=== PATIENT | female | born 1980 | race Caucasian/White ===

== ENCOUNTER 2016-08-10 18:11 | Emergency (ER) | payer OTHER ==
[~2016-08-10] VITALS: Ht 170.2 cm; Wt 146.3 kg
[~2016-08-10 18:11] MED LIST: HYDR-5688 PO; NORT10CA2 PO; OMEP40CA PO
[2016-08-10 18:20] VITALS: Ht 170.2 cm; Wt 146.3 kg
[2016-08-10] MEDS ORDERED: SODIUM CHLORIDE 0.9% 1000ML 1,000 ML IV STA (18:31)
[2016-08-10] MEDS ORDERED: PROCHLORPERAZINE 5 MG/ML 2 ML VIAL IV STA (18:34)
[2016-08-10] MEDS ORDERED: DiphenhydrAMINE HCL 50 MG/ML VIAL IV STA (18:34)
[2016-08-10] MEDS ORDERED: KETOROLAC TROMETHAMINE 30 MG/ML VIAL IV STA (18:34)
--- NOTE | 2016-08-10 18:46 | EMERGENCY ROOM VISIT NOTE ---
History Report prepared by She: Luis Mcnair Under the Supervision of: Dr. Lisandra Lieberman M.D. First contact with patient: 18:23 Chief Complaint: HEADACHE Stated Complaint: HEADACHE History of Present Illness The patient is a 36 year old female who presents to the Emergency Room with complaints of a constant headache beginning one day prior to arrival. She currently rates her discomfort as a 10/10 in severity. The patient states she had a lower spinal injection performed yesterday, and she developed a headache two hours after the injection that continues to shoot from her neck to the top of her head. She notes her symptoms improve with lying down. The patient associates light sensitivity, nausea, and vomiting with today's symptoms. She states she has a history of migraines, but this episode does not feel like her typical migraine. The patient notes she called her doctor's office, who gave the injection, and they noted it was too late to be seen but to rest, drink fluids, and call in the morning. She states she then called her PCP, who referred the patient to the ED for a possible spinal headache. The patient denies a fever. 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 Review of Systems See HPI for pertinent positives & negatives. A total of 10 systems reviewed and were otherwise negative. Past Medical & Surgical Medical Problems: (1) Bulging disc (2) Cleveland's disease (3) Migraines (4) Spinal stenosis Surgical Problems: (1) S/P appendectomy (2) S/P hysterectomy (3) S/P tonsillectomy (4) S/P tubal ligation Family History Cancer Diabetes mellitus Heart disease Hypertension Social History Smoking Status: Never Smoker Marital Status: Occupation Status: employed Current/Historical Medications Scheduled Eletriptan (Relpax), 20 MG PO DIRECTED Levothyroxine Sodium (Synthroid), 175 MCG PO DAILY Sumatriptan Succinate (Imitrex), 1 TABS PO PRN Allergies Coded Allergies: Sulfa Drugs (Verified Allergy, Unknown, BACTRIM DS, 06/06/09) Oxycodone (Unverified Adverse Reaction, Unknown, NAUSEA AND VOMITING, DIZZINESS, 10/14/11) Physical Exam Vital Signs Date Time Temp Pulse Resp B/P Pulse Ox O2 Delivery O2 Flow Rate FiO2 08/10/16 21:00 36.6 71 20 110/64 96 08/10/16 20:01 71 20 110/64 96 Room Air 08/10/16 19:55 76 20 124/60 96 Room Air 83 109/68 74 110/64 08/10/16 19:31 75 18 120/62 96 Room Air 08/10/16 18:20 36.6 71 18 147/80 98 Room Air Physical Exam Vital signs reviewed. General: Well-appearing female, in no significant distress. HEENT: No scleral icterus, PERRLA, neck supple. Atraumatic. No meningeal signs. Cardiovascular: Regular rate and rhythm, no extra sounds. Pulmonary: Clear to auscultation bilaterally, normal work of breathing. Abdomen: Obese, soft, nontender, nondistended, positive bowel sounds. Musculoskeletal: Atraumatic, no peripheral edema. Neurologic: Patient awake alert and oriented x 3, full strength in all 4 extremities. Cranial nerves 2 through 12 grossly intact. Skin: Warm, dry, no rash Medical Decision & Procedures Laboratory Results 08/10/16 18:50 Red Blood Count 4.87, Mean Corpuscular Volume 83.6, Mean Corpuscular Hemoglobin 29.0, Mean Corpuscular Hemoglobin Concent 34.6, Mean Platelet Volume 11.1, Neutrophils (%) (Auto) 65.8, Lymphocytes (%) (Auto) 26.1, Monocytes (%) (Auto) 5.9, Eosinophils (%) (Auto) 1.7, Basophils (%) (Auto) 0.2, Neutrophils # (Auto) 8.22, Lymphocytes # (Auto) 3.26, Monocytes # (Auto) 0.74, Eosinophils # (Auto) 0.21, Basophils # (Auto) 0.02 08/10/16 18:50 Test 08/10/16 18:50 08/10/16 18:58 08/10/16 20:00 White Blood Count 12.49 K/uL (4.8-10.8) Red Blood Count 4.87 M/uL (4.2-5.4) Hemoglobin 14.1 g/dL (12.0-16.0) Hematocrit 40.7 % (37-47) Mean Corpuscular Volume 83.6 fL (80-100) Mean Corpuscular Hemoglobin 29.0 pg (25-34) Mean Corpuscular Hemoglobin Concent 34.6 g/dl (32-36) Platelet Count 244 K/uL (130-400) Mean Platelet Volume 11.1 fL (7.4-10.4) Neutrophils (%) (Auto) 65.8 % Lymphocytes (%) (Auto) 26.1 % Monocytes (%) (Auto) 5.9 % Eosinophils (%) (Auto) 1.7 % Basophils (%) (Auto) 0.2 % Neutrophils # (Auto) 8.22 K/uL (1.4-6.5) Lymphocytes # (Auto) 3.26 K/uL (1.2-3.4) Monocytes # (Auto) 0.74 K/uL (0.11-0.59) Eosinophils # (Auto) 0.21 K/uL (0-0.5) Basophils # (Auto) 0.02 K/uL (0-0.2) RDW Standard Deviation 38.0 fL (36.4-46.3) RDW Coefficient of Variation 12.5 % (11.5-14.5) Immature Granulocyte % (Auto) 0.3 % Immature Granulocyte # (Auto) 0.04 K/uL (0.00-0.02) Anion Gap 9.0 mmol/L (3-11) Est Creatinine Clear Calc Drug Dose 154.3 ml/min Estimated GFR () 117.0 Estimated GFR (Non- 100.9 BUN/Creatinine Ratio 21.6 (10-20) Calcium Level 8.7 mg/dl (8.5-10.1) Total Bilirubin 0.2 mg/dl (0.2-1) Direct Bilirubin < 0.1 mg/dl (0-0.2) Aspartate Amino Transf (AST/SGOT) 17 U/L (15-37) Alanine Aminotransferase (ALT/SGPT) 42 U/L (12-78) Alkaline Phosphatase 98 U/L (45-117) Total Protein 7.6 gm/dl (6.4-8.2) Albumin 3.9 gm/dl (3.4-5.0) Bedside Troponin I 0.000 ng/ml (0-0.045) Urine Color YELLOW Urine Appearance CLEAR (CLEAR) Urine pH 5.5 (4.5-7.5) Urine Specific Garfield 1.033 (1.000-1.030) Urine Protein NEG (NEG) Urine Glucose (UA) NEG (NEG) Urine Ketones NEG (NEG) Urine Occult Blood NEG (NEG) Urine Nitrite NEG (NEG) Urine Bilirubin NEG (NEG) Urine Urobilinogen NEG (NEG) Urine Leukocyte Esterase NEG (NEG) Laboratory results per my review. Medications Administered Medications (Trade) Dose Ordered Sig/Edwige Route Start Time Stop Time Status Last Admin Dose Admin Sodium Chloride (Nss 1000ml) 1,000 ml @ 999 mls/hr Q1H1M STAT IV 08/10/16 18:31 08/10/16 19:31 DC 08/10/16 18:57 999 MLS/HR Ketorolac Tromethamine (Toradol Inj) 30 mg NOW STAT IV 08/10/16 18:34 08/10/16 18:35 DC 08/10/16 18:55 30 MG Prochlorperazine Edisylate (Compazine Inj) 10 mg NOW STAT IV 08/10/16 18:34 08/10/16 18:35 DC 08/10/16 18:55 10 MG Diphenhydramine HCl (Benadryl Inj) 25 mg NOW STAT IV 08/10/16 18:34 08/10/16 18:35 DC 08/10/16 18:55 25 MG Acetaminophen/ Hydrocodone Bitart (Clarence 5/325mg Home Pack) 1 homepack UD ONCE PO 08/10/16 20:45 08/10/16 20:46 DC 08/10/16 20:59 1 HOMEPACK ED Course 1828: Past medical records reviewed. The patient was evaluated in room A9B. A complete history and physical examination was performed. 1830: Ordered Sodium Chloride 1,000 ml @ 999 mls/hr IV. 1833: Ordered Benadryl Inj 25 mg IV, Compazine Inj 10 mg IV, Toradol Inj 30 mg IV. 2044: Ordered Acetaminophen/Hydrocodone Bitart 1 homepack PO. 2046: Upon reevaluation, the patient appeared to have improvement of her symptoms. I discussed findings with her. She verbalized agreement of the treatment plan. The patient was discharged home. Medical Decision Differential diagnosis: Intracranial hemorrhage, intracranial mass, migraine headache, tension headache , sinusitis, meningitis, spinal headache. This patient was evaluated and appeared to be in no significant distress. Physical examination is fairly unrevealing. The patient was hydrated with normal saline solution, given IV Compazine, IV Benadryl and IV Toradol. Patient had significant resolution of her symptoms. Laboratory work is unrevealing. This is likely a migraine headache by history. She did have an epidural injection yesterday and this may represent a low flow headache. The patient was encouraged to drink plenty of clear fluids. She will use Clarence as needed for severe pain. She will not drive while taking this medication. The patient was discharged in care of her family members and will follow-up with her physician this week. She will return to the ER for worsening of symptoms or any medical concerns. Impression Primary Impression: Status post epidural steroid injection Additional Impression: Migraine headache Scribe Attestation The scribe's documentation has been prepared under my direction and personally reviewed by me in its entirety. I confirm that the note above accurately reflects all work, treatment, procedures, and medical decision making performed by me. Departure Information Dispostion Home / Self-Care Referrals Amy Conner M.D. (PCP) Forms HOME CARE DOCUMENTATION FORM, IMPORTANT VISIT INFORMATION Patient Instructions [facility] Additional Instructions Diagnosis: Migraine headache, status post epidural injection Please drink plenty of clear fluids. Clarence one to 2 tabs every 6 hours as needed for severe pain. Do not drive or take Tylenol with this medication. Follow-up with your physician this week for reevaluation. Return to the ER for worsening of symptoms or any medical concerns. Problem Qualifiers Additional Impression: Migraine headache Migraine type: without aura Status migrainosus presence: without status migrainosus Intractability: not intractable Qualified Codes: G43.009 - Migraine without aura, not intractable, without status migrainosus
[2016-08-10] MEDS ORDERED: LEVO175T PO (19:09)
[2016-08-10] MEDS ORDERED: SUMA50TA15 PO (19:10)
[2016-08-10] MEDS ORDERED: ELET20TA PO (19:10)
[2016-08-10 19:15] LABS: BASO % 0.2 %; BASO ABS # 0.02 K/uL (0-0.2); COMPLETE YES; EOS % 1.7 %; HEMATOCRIT 40.7 % (37-47); IG% 0.3 %; LYMPH % 26.1 %; LYMPH ABS # 3.26 K/uL (1.2-3.4); MEAN CELL VOLUME 83.6 fL (80-100); MEAN CORPUSCULAR HGB CONC 34.6 g/dl (32-36); MEAN PLATELET VOLUME 11.1 fL (7.4-10.4); MONO % 5.9 %; NEUT % 65.8 %; PLATELET COUNT 244 K/uL (130-400); RED BLOOD COUNT 4.87 M/uL (4.2-5.4); WHITE BLOOD COUNT 12.49 K/uL (4.8-10.8)
[2016-08-10 19:31] LABS: ALT/SGPT 42 U/L (12-78); BLOOD UREA NITROGEN 16 mg/dl (7-18); BUN/CREATININE RATIO 21.6 (10-20); CALCIUM 8.7 mg/dl (8.5-10.1); CARBON DIOXIDE 25 mmol/L (21-32); CHLORIDE 107 mmol/L (98-107); CREATININE 0.76 mg/dl (0.60-1.20); GLUCOSE 102 mg/dl (70-99); POTASSIUM 3.5 mmol/L (3.5-5.1); SODIUM 141 mmol/L (136-145)
[2016-08-10 19:34] LABS: ALKALINE PHOSPHATASE 98 U/L (45-117); AST/SGOT 17 U/L (15-37)
[2016-08-10 20:25] LABS: URINE APPEARANCE CLEAR (CLEAR); URINE BILIRUBIN NEG (NEG); URINE COLOR YELLOW; URINE NITRITE NEG (NEG); URINE PH 5.5 (4.5-7.5); URINE SPECIFIC GRAVITY 1.033 (1.000-1.030); UROBILINOGEN NEG (NEG); ZZUR CULT IF INDIC CLEAN CATCH NO
[2016-08-10 20:28] LABS: MANUAL MICROSCOPIC REQUIRED? NO; REVIEW REQ? NO
[2016-08-10] MEDS ORDERED: NORCO 5/325MG HOME PACK PO ONE (20:45)
[2016-08-10 21:00] VITALS: BP 110/64; PULSE 71; TEMP 36.6; O2SAT 96
== END 2016-08-10 21:01 | disposition home or self-care (01) ==
LOC: C.EDB 18:12 → C.EDA 21:01
DX: Z98.890 Other specified postprocedural states (principal); G43.909 Migraine, unspecified, not intractable, without status migrainosus; E06.3 Autoimmune thyroiditis; M48.00 Spinal stenosis, site unspecified; Z80.9 Family history of malignant neoplasm, unspecified; Z83.3 Family history of diabetes mellitus; Z82.49 Family history of ischemic heart disease and other diseases of the circulatory system; Z79.899 Other long term (current) drug therapy

== ENCOUNTER 2018-09-30 16:18 | Inpatient (IN) ==
--- OUTSIDE RECORDS SUMMARY | 2018-09-30 16:23 | External Medical Summary | Continuity of Care Document ---
:1980 Author Name Tommie Rios Address Unavailable Unavailable , Care Team Providers Name Role Phone Zayra Engel PA-C Unavailable [email or web address] [place] Julia TEE Unavailable [email or web address] Victoria M.D. 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 Gabriel Victoria Start: 03-Jul-2013 Quantity: 30 Refills: 10 Levothyroxine Sodium 125 MCG Oral Tablet; TAKE 1 TABLE T DAILY DIRECTED. NAY Dumont Start: 06-Sep-2013 Quantity: 30 Refills: 3 Procedures Procedures not documented Immunizations Immunizations not documented Plan of Treatment Planned Observations Planned Goals not documented Results No Known Results Results not documented
[2018-09-30] MEDS ORDERED: SODIUM CHLORIDE 0.9% 1000ML 2,000 ML IV ONE (16:35)
[2018-09-30] MEDS ORDERED: ONDANSETRON INJ 2 MG/ML 2 ML VIAL IV STA (16:35)
[2018-09-30] MEDS ORDERED: MoRPHine SULFATE 10 MG/ML CARP/VIAL IV STA (16:35)
--- NOTE | 2018-09-30 16:47 | Emergency Department Note ---
History of Present Illness General Chief complaint: Fever Stated complaint: Fever, body aches, abdominal pain, headache, vomit Source: patient Mode of arrival: ambulatory Limitations: no limitations History of Present Illness Maximum Pain Intensity: 7 This patient is a 38-year-old female who presents to the emergency department complaining of fever and generalized illness for the past 4 days. The patient states that 4 days ago, she initially developed lower abdominal pain. She states the pain radiates across her lower abdomen and rates the discomfort a 7/10. Since then, she has developed fevers, lightheadedness, chest pressure, body aches and headache. She has had associated nausea and vomiting. She den ies diarrhea. She has been taking Tylenol and ibuprofen and states this is no longer relieving her fevers. She states her temperature has been up to 103 F at home. 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 She denies other medical problems. She denies neck pain/stiffness, cough or sore throat. Home Medications Home Medications Medication Instructions Recorded Confirmed Type duloxetine 30 mg PO DAILY 09/30/18 09/30/18 History duloxetine 60 mg PO DAILY 09/30/18 09/30/18 History Allergies Allergy/AdvReac Type Severity Reaction Status Date / Time Sulfa (Sulfonamide Allergy Unknown BACTRIM DS Verified 09/30/18 16:50 Antibiotics) oxycodone AdvReac Intermediate NAUSEA AND Unverified 09/30/18 21:13 VOMITING, DIZZINESS Past Med/Surg History Medical History Cleveland's disease Migraines (Chronic) Social History Preferred Language: Malagasy Communication Ability: Effective Sausage Maker Required: No Beliefs That Will Affect Care: None Current Living Situation: Spouse Other Information That Helps Us Care for You: No Feels Safe at Home: Yes Safety Concerns: Feels Safe At This Time Smoking Status: Never smoker Hx Alcohol Use: Yes Hx Substance Use: No Review of Systems A total of 10 systems reviewed and were otherwise negative Physical Exam Vital Signs Vital Signs - 24 hr 09/30/18 18:00 09/30/18 18:30 09/30/18 18:31 Pulse Rate 101 H 103 H 103 H Pulse Rate from SpO2 Sensor 103 H 104 H 103 H Respiratory Rate 23 24 Blood Pressure 128/75 117/61 Blood Pressure Mean 92 79 Pulse Oximetry 93 92 94 09/30/18 19:00 09/30/18 19:20 09/30/18 19:21 Pulse Rate 107 H 101 H 103 H Pulse Rate from SpO2 Sensor 102 H 104 H Respiratory Rate 21 23 Blood Pressure 125/69 134/55 L Blood Pressure Mean 87 81 Pulse Oximetry 97 97 09/30/18 19:30 09/30/18 19:31 Pulse Rate 101 H 104 H Pulse Rate from SpO2 Sensor 98 H 104 H Respiratory Rate 27 H 23 Blood Pressure 111/58 L Blood Pressure Mean 75 Pulse Oximetry 95 VITALS: Vitals are noted on the nurse's note and reviewed by myself. Vital signs stable. GENERAL: This is a 38-year-old female, in moderate distress, shaking, well- developed well-nourished. SKIN: The skin was without rashes. EARS: External auditory canals clear, tympanic membranes pearly mo without erythema or effusion bilaterally. EYES: Pupils equal round and reactive to light and accommodation. NOSE: Patent, turbinates without inflammation or discharge. MOUTH: Mucous membranes moist. Tonsils are not enlarged. Pharynx without eryt komal or exudate. NECK: Supple without nuchal rigidity. No lymphadenopathy. No tenderness of the posterior neck. No meningismus. HEART: Regular rate and rhythm without murmurs gallops or rubs. LUNGS: Clear to auscultation bilaterally without wheezes, rales or rhonchi. ABDOMEN: Positive bowel sounds x 4. Moderate tenderness to palpation across the lower abdomen. No guarding or rebound tenderness. NEURO: Patient was alert and oriented to person place and time. Course Reevaluation(s) Reevaluation #1: Patient was reevaluated after CT scanning and has developed a few hives. She was given a dose of Benadryl. She also requested an additional dose of pain medication and was given this. Reevaluation #2: Patient is feeling better at this time. Findings were discussed with the patient. She is agreeable to admission. Consultations Consultation #1: Dr. Eugene - [facility] hospitalist Administered Medications Acetaminophen (Tylenol) 650 mg PO Q4H PRN PRN Reason: pain/fever Stop: 10/30/18 22:15 Last Admin: 10/01/18 13:50 Dose: 650 mg Documented by: [id number] Admin: 09/30/18 23:55 Dose: 650 mg Documented by: [id number] Duloxetine HCl (Cymbalta) 30 mg PO DAILY [facility] Stop: 10/31/18 08:59 Last Admin: 10/01/18 08:34 Dose: 30 mg Documented by: [id number] Duloxetine HCl (Cymbalta) 60 mg PO DAILY [facility] Stop: 10/31/18 08:59 Last Admin: 10/01/18 08:34 Dose: 60 mg Documented by: [id number] Enoxaparin Sodium (Lovenox) 40 mg SQ Q24H [facility] Stop: 10/31/18 08:59 Last Admin: 10/01/18 08:35 Dose: 40 mg Documented by: [id number] Cefepime HCl 1,000 mg/ Syringe 11.3 mls @ 5.5 mls/min IV TID [facility]; Protocol Stop: 10/11/18 08:59 Last Admin: 10/01/18 13:50 Dose: 5.5 mls/min Documented by: [id number] Admin: 10/01/18 08:35 Dose: 5.5 mls/min Documented by: [id number] Morphine Sulfate (Morphine Sulfate) 2 mg IV Q2H PRN PRN Reason: Pain Stop: 10/14/18 22:15 Last Admin: 09/30/18 23:34 Dose: 2 mg Documented by: [id number] Discontinued Medications Diphenhydramine HCl (Benadryl) 50 mg IV NOW STA Stop: 09/30/18 19:22 Last Admin: 09/30/18 19:26 Dose: 50 mg Documented by: [id number] Diphenhydramine HCl (Benadryl) Confirm Administered Dose 50 mg .ROUTE .STK-MED ONE Stop: 09/30/18 19:23 Last Admin: 09/30/18 19:26 Dose: Not Given Documented by: [id number] Hydromorphone HCl (Dilaudid) 1 mg IV NOW STA Stop: 09/30/18 19:32 Last Admin: 09/30/18 19:34 Dose: 1 mg Documented by: [id number] Sodium Chloride (Nss 1000ml) 2,000 mls @ 999 mls/hr IV .Q2H1M ONE Stop: 09/30/18 18:35 Last Infusion: 09/30/18 20:11 Dose: 0 mls/hr Documented by: [id number] Admin: 09/30/18 18:10 Dose: 999 mls/hr Documented by: [id number] Ceftriaxone Sodium (Rocephin) 1,000 mg in 50 mls @ 100 mls/hr IV NOW STA Stop: 09/30/18 20:06 Last Infusion: 09/30/18 20:23 Dose: 0 mls/hr Documented by: [id number] Admin: 09/30/18 19:52 Dose: 100 mls/hr Documented by: [id number] Sodium Chloride (Nss 1000ml) 1,000 mls @ 125 mls/hr IV .Q8H JUWAN Stop: 10/30/18 22:15 Last Admin: 10/01/18 13:51 Dose: 125 mls/hr Documented by: [id number] Infusion: 10/01/18 13:51 Dose: 125 mls/hr Documented by: [id number] Admin: 10/01/18 06:41 Dose: 125 mls/hr Documented by: [id number] Infusion: 10/01/18 06:41 Dose: 125 mls/hr Documented by: [id number] Admin: 09/30/18 23:35 Dose: 125 mls/hr Documented by: [id number] Ioversol (Optiray 320 100ml) 90 ml IV ONCE PRN PRN Reason: Interaction Checking Stop: 10/04/18 19:15 Last Admin: 09/30/18 19:16 Dose: 90 ml Documented by: [id number] Morphine Sulfate (Morphine Sulfate) 6 mg IV NOW STA Stop: 09/30/18 16:36 Last Admin: 09/30/18 18:09 Dose: 6 mg Documented by: [id number] Ondansetron HCl (Zofran) 4 mg IV NOW STA Stop: 09/30/18 16:36 Last Admin: 09/30/18 18:10 Dose: 4 mg Documented by: [id number] Medical Decision Making Differential Diagnosis Differential diagnosis includes sepsis, UTI, pyelonephritis, infected kidney stone, appendicitis, diverticulitis, colitis, intra-abdominal abscess, meningitis, pneumonia, viral illness, influenza, among others. Home Medications Current Medication List: was personally reviewed by me Laboratory Data Attestation: I reviewed the patient's lab results. Result diagrams: 10/01/18 06:29 10/01/18 06:29 Lab Results 09/30/18 09/30/18 09/30/18 Range/Units 16:48 16:48 16:48 WBC (4.8-10.8) K/uL RBC (4.2-5.4) M/uL Hgb (12.0-16.0) g/dL POC Hgb (12.0-16.0) g/dl Hct (37-47) % POC Hct (37-47) % MCV (80-100) fL MCH (25-34) pg MCHC (32-36) g/dL RDW Std Deviation (36.4-46.3) fL RDW Coeff of Kam (11.5-14.5) % Plt Count (130-400) K/uL MPV (7.4-10.4) fL Immature Gran % (Auto) % Neut % (Auto) % Lymph % (Auto) % Kinney % (Auto) % Eos % (Auto) % Baso % (Auto) % Immature Gran # (Auto) (0.00-0.02) K/uL Neut # (Auto) (1.4-6.5) K/uL Lymph # (Auto) (1.2-3.4) K/uL Kinney # (Auto) (0.11-0.59) K/uL Eos # (Auto) (0-0.5) K/uL Baso # (Auto) (0-0.2) K/uL POC Sodium (135-144) mEq/L Sodium (136-145) mmol/L POC Potassium (3.3-5.0) mEq/L Potassium (3.5-5.1) mmol/L POC Chloride (101-112) mEq/L Chloride (98-107) mmol/L Carbon Dioxide (21-32) mmol/L POC Total CO2 (24-31) mEq/l Anion Gap (3-11) POC Anion Gap (16-25) mmol/L POC BUN (7-18) mg/dl BUN (7-18) mg/dl Creatinine (0.6-1.2) mg/dl POC Creatinine (0.6-1.3) mg/dl Est Cr Clr Drug Dosing ml/min Est GFR ( Amer) Est GFR (Non-Af Amer) BUN/Creatinine Ratio (10-20) Glucose (70-99) mg/dl POC Glucose (other) (70-99) mg/dl Lactate (0.4-2.0) mmol/L Calcium (8.5-10.1) mg/dl POC Ioniz Calcium Michelle (1.12-1.32) mmol/l Total Bilirubin (0.2-1) mg/dl AST (15-37) U/L ALT (12-78) U/L Alkaline Phosphatase (45-117) U/L Troponin I (0-0.045) ng/ml Total Protein (6.4-8.2) gm/dl Albumin (3.4-5.0) gm/dl Globulin (2.5-4.0) gm/dl Albumin/Globulin Ratio (0.9-2) TSH (0.300-4.500) uIu/ml Urine Color Dark Yellow Urine Appearance Clear (Clear) Urine pH 6.5 (4.5-7.5) Ur Specific [place] 1.023 (1.000-1.030) Urine Protein 1+ H (Negative) Urine Glucose (UA) Negative (Negative) Urine Ketones Negative (Negative) Urine Blood 2+ H (Negative) Urine Nitrite Negative (Negative) Urine Bilirubin 1+ H (Negative) Urine Urobilinogen Negative (Negative) Ur Leukocyte Esterase Trace H (Negative) Urine WBC (Auto) 10-30 H (0-5) /hpf Urine RBC (Auto) 10-30 H (0-4) /hpf U Hyaline Cast (Auto) 1-5 (0-5) /lpf U Epithel Cells (Auto) >30 H (0-5) /lpf Urine Bacteria (Auto) Negative (Negative) POC Ur Test NEG (NEG) Acetaminophen (10-30) ug/ml Influenza Type A Ag Neg for Influ A (Neg) Influenza Type B Ag Neg for Influ B (Neg) 09/30/18 09/30/18 09/30/18 Range/Units 18:05 18:05 18:05 WBC 12.76 H (4.8-10.8) K/uL RBC 4.59 (4.2-5.4) M/uL Hgb 13.7 (12.0-16.0) g/dL POC Hgb (12.0-16.0) g/dl Hct 40.2 (37-47) % POC Hct (37-47) % MCV 87.6 (80-100) fL MCH 29.8 (25-34) pg MCHC 34.1 (32-36) g/dL RDW Std Deviation 41.2 (36.4-46.3) fL RDW Coeff of Kam 12.8 (11.5-14.5) % Plt Count 185 (130-400) K/uL MPV 9.9 (7.4-10.4) fL Immature Gran % (Auto) 0.2 % Neut % (Auto) 77.2 % Lymph % (Auto) 9.2 % Kinney % (Auto) 12.9 % Eos % (Auto) 0.3 % Baso % (Auto) 0.2 % Immature Gran # (Auto) 0.03 H (0.00-0.02) K/uL Neut # (Auto) 9.86 H (1.4-6.5) K/uL Lymph # (Auto) 1.17 L (1.2-3.4) K/uL Kinney # (Auto) 1.64 H (0.11-0.59) K/uL Eos # (Auto) 0.04 (0-0.5) K/uL Baso # (Auto) 0.02 (0-0.2) K/uL POC Sodium (135-144) mEq/L Sodium 141 (136-145) mmol/L POC Potassium (3.3-5.0) mEq/L Potassium 3.5 (3.5-5.1) mmol/L POC Chloride (101-112) mEq/L Chloride 110 H (98-107) mmol/L Carbon Dioxide 24 (21-32) mmol/L POC Total CO2 (24-31) mEq/l Anion Gap 7.0 (3-11) POC Anion Gap (16-25) mmol/L POC BUN (7-18) mg/dl BUN 9 (7-18) mg/dl Creatinine 0.72 (0.6-1.2) mg/dl POC Creatinine (0.6-1.3) mg/dl Est Cr Clr Drug Dosing 154.9 ml/min Est GFR ( Amer) 123.1 Est GFR (Non-Af Amer) 106.2 BUN/Creatinine Ratio 12.1 (10-20) Glucose 112 H (70-99) mg/dl POC Glucose (other) (70-99) mg/dl Lactate 0.9 (0.4-2.0) mmol/L Calcium 8.9 (8.5-10.1) mg/dl POC Ioniz Calcium Michelle (1.12-1.32) mmol/l Total Bilirubin 0.8 (0.2-1) mg/dl AST 53 H (15-37) U/L ALT 94 H (12-78) U/L Alkaline Phosphatase 136 H (45-117) U/L Troponin I < 0.015 (0-0.045) ng/ml Total Protein 7.3 (6.4-8.2) gm/dl Albumin 3.2 L (3.4-5.0) gm/dl Globulin 4.1 H (2.5-4.0) gm/dl Albumin/Globulin Ratio 0.8 L (0.9-2) TSH 1.230 (0.300-4.500) uIu/ml Urine Color Urine Appearance (Clear) Urine pH (4.5-7.5) Ur Specific [place] (1.000-1.030) Urine Protein (Negative) Urine Glucose (UA) (Negative) Urine Ketones (Negative) Urine Blood (Negative) Urine Nitrite (Negative) Urine Bilirubin (Negative) Urine Urobilinogen (Negative) Ur Leukocyte Esterase (Negative) Urine WBC (Auto) (0-5) /hpf Urine RBC (Auto) (0-4) /hpf U Hyaline Cast (Auto) (0-5) /lpf U Epithel Cells (Auto) (0-5) /lpf Urine Bacteria (Auto) (Negative) POC Ur Test (NEG) Acetaminophen (10-30) ug/ml Influenza Type A Ag (Neg) Influenza Type B Ag (Neg) 09/30/18 09/30/18 Range/Units 18:16 20:36 WBC (4.8-10.8) K/uL RBC (4.2-5.4) M/uL Hgb (12.0-16.0) g/dL POC Hgb 13.6 (12.0-16.0) g/dl Hct (37-47) % POC Hct 40 (37-47) % MCV (80-100) fL MCH (25-34) pg MCHC (32-36) g/dL RDW Std Deviation (36.4-46.3) fL RDW Coeff of Kam (11.5-14.5) % Plt Count (130-400) K/uL MPV (7.4-10.4) fL Immature Gran % (Auto) % Neut % (Auto) % Lymph % (Auto) % Kinney % (Auto) % Eos % (Auto) % Baso % (Auto) % Immature Gran # (Auto) (0.00-0.02) K/uL Neut # (Auto) (1.4-6.5) K/uL Lymph # (Auto) (1.2-3.4) K/uL Kinney # (Auto) (0.11-0.59) K/uL Eos # (Auto) (0-0.5) K/uL Baso # (Auto) (0-0.2) K/uL POC Sodium 141 (135-144) mEq/L Sodium (136-145) mmol/L POC Potassium 3.4 (3.3-5.0) mEq/L Potassium (3.5-5.1) mmol/L POC Chloride 106 (101-112) mEq/L Chloride (98-107) mmol/L Carbon Dioxide (21-32) mmol/L POC Total CO2 21 L (24-31) mEq/l Anion Gap (3-11) POC Anion Gap 18.0 (16-25) mmol/L POC BUN 7 (7-18) mg/dl BUN (7-18) mg/dl Creatinine (0.6-1.2) mg/dl POC Creatinine 0.6 (0.6-1.3) mg/dl Est Cr Clr Drug Dosing ml/min Est GFR ( Amer) Est GFR (Non-Af Amer) BUN/Creatinine Ratio (10-20) Glucose (70-99) mg/dl POC Glucose (other) 120 H (70-99) mg/dl Lactate (0.4-2.0) mmol/L Calcium (8.5-10.1) mg/dl POC Ioniz Calcium Michelle 1.14 (1.12-1.32) mmol/l Total Bilirubin (0.2-1) mg/dl AST (15-37) U/L ALT (12-78) U/L Alkaline Phosphatase (45-117) U/L Troponin I (0-0.045) ng/ml Total Protein (6.4-8.2) gm/dl Albumin (3.4-5.0) gm/dl Globulin (2.5-4.0) gm/dl Albumin/Globulin Ratio (0.9-2) TSH (0.300-4.500) uIu/ml Urine Color Urine Appearance (Clear) Urine pH (4.5-7.5) Ur Specific [place] (1.000-1.030) Urine Protein (Negative) Urine Glucose (UA) (Negative) Urine Ketones (Negative) Urine Blood (Negative) Urine Nitrite (Negative) Urine Bilirubin (Negative) Urine Urobilinogen (Negative) Ur Leukocyte Esterase (Negative) Urine WBC (Auto) (0-5) /hpf Urine RBC (Auto) (0-4) /hpf U Hyaline Cast (Auto) (0-5) /lpf U Epithel Cells (Auto) (0-5) /lpf Urine Bacteria (Auto) (Negative) POC Ur Test (NEG) Acetaminophen 2 L (10-30) ug/ml Influenza Type A Ag (Neg) Influenza Type B Ag (Neg) Imaging Data Attestation: I personally reviewed and interpreted this imaging study as foll ows: Radiologist's Impression: XR chest 1V portable FINDINGS: The heart is the upper limits of normal in size. There is a suboptimal inspiration. There are basilar opacities left greater than right, atelectatic versus infectious/inflammatory.[ There is no failure. There are no large pleural effusions. IMPRESSION: 1. Low lung volumes with basilar opacities left greater than right, atelectatic versus infectious/inflammatory CT abd pelvis IV con only FINDINGS: Lower chest: There are bibasilar airspace opacities, statistically atelectatic although an inflammatory process could appear similar Liver: The contrast-enhanced liver is normal in size, contour, and attenuation. There is no intrahepatic biliary ductal dilatation. The hepatic veins and portal veins are patent. Gallbladder: The gallbladder is mildly distended. No calculi are visualized. There is no gallbladder wall thickening. Spleen: Spleen is mildly enlarged measuring 13.3 cm. Pancreas: There is fatty atrophy the pancreas. No pancreatic masses are visualized. Adrenal glands: Unremarkable. Kidneys: There is a duplex left renal collecting system. There is an area of focal diminished attenuation involving both the upper pole moiety and the lower pole moiety. There is infiltration of the perinephric fat. The findings are suggestive of polynephritis with focal lobar nephronia. Bowel: There are no transition zones indicate bowel obstruction. There is no evidence of acute diverticulitis. There are no findings to indicate acute appendicitis. Peritoneum: There is no intraperitoneal free air or abdominal ascites. Vasculature: The abdominal aorta is normal in course and caliber. Adenopathy: There are minimally prominent para-aortic lymph nodes nodes, likely reactive. Pelvic viscera: The uterus appears surgically absent Skeletal structures: No destructive osseous lesions are seen. IMPRESSION: Normal Study 1. CT findings indicative of left renal pyelonephritis with areas of lobar nephronia. 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 2. No evidence of bowel obstruction. No evidence of free air 3. Mild splenomegaly 4. Bilateral lower lobe pulmonary opacities, statistically atelectatic Biliary ultrasound FINDINGS: The pancreas was largely obscured. No pancreatic masses are visualized. There is no pancreatic ductal dilatation. There is no right-sided hydronephrosis. Multiple gallstones are visualized. There is no gallbladder wall thickening. There is no pericholecystic fluid. There is no ductal dilatation. The common bile duct measures 5 mm. IMPRESSION: 1. Cholelithiasis. No evidence of ductal dilatation. Blood Pressure Blood Pressure Findings: Normal blood pressure Blood Pressure Disposition: did not require urgent referral MDM Narrative The patient is a 38-year-old female who presents today complaining of fevers and abdominal pain. Labs revealed a leukocytosis of 12.76. Kidney function within normal limits. LFTs were found to be elevated with AST of 53, ALT of 94, and alkaline phosphatase of 136. CT of the abdomen/pelvis was performed and shows evidence of pyelonephritis with lobar nephronia. Urinalysis suggestive of possible infection and given the CT findings patient will be treated for pyelonephritis. She was given a dose of 1 g Rocephin. She was hydrated with 2 L of saline. She was medicated for pain and nausea. Given patient's mildly elevated LFTs, ultrasound of the gallbladder was obtained and did not show any acute findings. The patient has been taking multiple doses of Tylenol and I suspect this is the reason for the LFT elevation. Patient was agreeable with admission. The case was discussed with the [facility] hospitalist service. The patient's case was discussed with Dr. Huynh, who agreed with my evaluation a nd treatment plan. Impression & Plan Pyelonephritis of left kidney, Elevated LFTs Discharge Plan Visit Data *Final* Discharge Date/Time: 09/30/18 22:02 Chief Complaint: Fever Stated Complaint: Fever, body aches, abdominal pain, headache, vomit ED Provider: Ezekiel Huynh ED Midlevel Provider: Korina Mason Discharge Problem: Pyelonephritis of left kidney, Elevated LFTs Patient Disposition: Admitted As Inpatient Discharge Instructions Interventions: ED Discharge Assessment Last Done: 09/30/18 22:02
[2018-09-30 17:41] LABS: Appearance Urine Clear (Clear); Bacteria Urine Automated Negative (Negative); Blood Urine 2+ (Negative); Color Urine Dark Yellow; Epithelial Cell Urine Auto >30 /lpf (0-5); Glucose Urine UA Negative (Negative); Ketones Urine Negative (Negative); Leukocyte Esterase Urine Trace (Negative); Nitrite Urine Negative (Negative); Protein Urine 1+ (Negative); Specific Gravity Urine 1.023 (1.000-1.030); Urobilinogen Urine Negative (Negative); pH Urine 6.5 (4.5-7.5)
[2018-09-30 17:42] LABS: Bilirubin Urine 1+ (Negative)
[2018-09-30 17:44] LABS: Ictotest Urine Positive (Negative)
[2018-09-30 18:14] LABS: Basophils # (auto) 0.02 K/uL (0-0.2); Basophils % (auto) 0.2 %; Eosinophils # (auto) 0.04 K/uL (0-0.5); Eosinophils % (auto) 0.3 %; Hematocrit (blood only) 40.2 % (37-47); Hemoglobin 13.7 g/dL (12.0-16.0); Immature Granulocytes # (auto) 0.03 K/uL (0.00-0.02); Immature Granulocytes % (auto) 0.2 %; Lymphocytes # (auto) 1.17 K/uL (1.2-3.4); Lymphocytes % (auto) 9.2 %; Mean Corpuscular Hgb Conc 34.1 g/dL (32-36); Mean Corpuscular Volume 87.6 fL (80-100); Mean Platelet Volume 9.9 fL (7.4-10.4); Monocytes # (auto) 1.64 K/uL (0.11-0.59); Monocytes % (auto) 12.9 %; Neutrophils # (auto) 9.86 K/uL (1.4-6.5); Neutrophils % (auto) 77.2 %; Platelet Count 185 K/uL (130-400); RDW Coefficient of Variation 12.8 % (11.5-14.5); RDW Standard Deviation 41.2 fL (36.4-46.3); Red Blood Count 4.59 M/uL (4.2-5.4); White Blood Count 12.76 K/uL (4.8-10.8)
--- NOTE | 2018-09-30 18:19 | XRay Report ---
XR chest 1V portable CLINICAL HISTORY: fever COMPARISON STUDY: No previous studies for comparison. FINDINGS: The heart is the upper limits of normal in size. There is a suboptimal inspiration. There a re basilar opacities left greater than right, atelectatic versus infectious/inflammatory.[ There is n o failure. There are no large pleural effusions. IMPRESSION: 1. Low lung volumes with basilar opacities left greater than right, atelectatic versus infectious/inf lammatory Electronically signed by: Naman Lester M.D. 09/30/2018 6:17 PM
[2018-09-30 18:29] LABS: Alanine Aminotransferase 94 U/L (12-78); Albumin Level 3.2 gm/dl (3.4-5.0); Aspartate Aminotransferase 53 U/L (15-37); BUN Creatinine Ratio 12.1 (10-20); Blood Urea Nitrogen 9 mg/dl (7-18); Calcium 8.9 mg/dl (8.5-10.1); Carbon Dioxide 24 mmol/L (21-32); Chloride 110 mmol/L (98-107); Creatinine Clr Calc Pharmacy 154.9 ml/min; Est GFR (African American) 123.1; Est GFR (Non-African American) 106.2; Glucose 112 mg/dl (70-99); Potassium 3.5 mmol/L (3.5-5.1); Sodium 141 mmol/L (136-145)
[2018-09-30 18:29] LABS: iSTAT Creatinine 0.6 mg/dl (0.6-1.3); iSTAT Hemoglobin 13.6 g/dl (12.0-16.0); iSTAT Ionized Calcium 1.14 mmol/l (1.12-1.32); iSTAT Potassium 3.4 mEq/L (3.3-5.0)
[2018-09-30 18:40] LABS: Albumin Globulin Ratio 0.8 (0.9-2); Alkaline Phosphatase 136 U/L (45-117); Bilirubin,Total 0.8 mg/dl (0.2-1); Globulin 4.1 gm/dl (2.5-4.0); Total Protein 7.3 gm/dl (6.4-8.2); Troponin I < 0.015 ng/ml (0-0.045)
[2018-09-30] MEDS ORDERED: IOVERSOL 100ml IV PRN (19:16)
[2018-09-30] MEDS ORDERED: DiphenhydrAMINE HCL 50 MG/ML VIAL IV STA (19:21)
[2018-09-30] MEDS ORDERED: DiphenhydrAMINE HCL 50 MG/ML VIAL ONE (19:22)
[2018-09-30] MEDS ORDERED: HYDROmorphone INJ 1 MG/ML SYRINGE IV STA (19:31)
--- NOTE | 2018-09-30 19:33 | CT Scan Report ---
CT abd pelvis IV con only CLINICAL HISTORY: lower abdominal pain, fever COMPARISON STUDY: None. TECHNIQUE: The patient was scanned in a dynamic helical fashion during intravenous administration of 90 cc Optiray 320. A dose lowering technique was utilized adhering to the principles of ALARA. CT DOSE: 1716.79 mGy.cm FINDINGS: Lower chest: There are bibasilar airspace opacities, statistically atelectatic although an inflammato ry process could appear similar Liver: The contrast-enhanced liver is normal in size, contour, and attenuation. There is no intrahepa tic biliary ductal dilatation. The hepatic veins and portal veins are patent. Gallbladder: The gallbladder is mildly distended. No calculi are visualized. There is no gallbladder wall thickening. Spleen: Spleen is mildly enlarged measuring 13.3 cm. Pancreas: There is fatty atrophy the pancreas. No pancreatic masses are visualized. Adrenal glands: Unremarkable. Kidneys: There is a duplex left renal collecting system. There is an area of focal diminished attenua tion involving both the upper pole moiety and the lower pole moiety. There is infiltration of the per inephric fat. The findings are suggestive of polynephritis with focal lobar nephronia. Bowel: There are no transition zones indicate bowel obstruction. There is no evidence of acute divert iculitis. There are no findings to indicate acute appendicitis. Peritoneum: There is no intraperitoneal free air or abdominal ascites. Vasculature: The abdominal aorta is normal in course and caliber. Adenopathy: There are minimally prominent para-aortic lymph nodes nodes, likely reactive. Pelvic viscera: The uterus appears surgically absent Skeletal structures: No destructive osseous lesions are seen. IMPRESSION: Normal Study 1. CT findings indicative of left renal pyelonephritis with areas of lobar nephronia. There is a dupl ex left renal collecting system. 2. No evidence of bowel obstruction. No evidence of free air 3. Mild splenomegaly 4. Bilateral lower lobe pulmonary opacities, statistically atelectatic Electronically signed by: Naman Lester M.D. 09/30/2018 7:32 PM
[2018-09-30] MEDS ORDERED: cefTRIAXone SODIUM 1,000 MG/50 ML BAG IV STA (19:37)
--- NOTE | 2018-09-30 20:29 | History & Physical Report ---
Date of Service September 30, 2018 History of Present Illness Chief Complaint: Abdominal pain, fevers Primary Care Provider: NO PCP Patient is a 38yo F PMH of migraines, thyroid nodule/oumou's thyroiditis, spinal stenosis, morbid obesity, recurrent UTIs who presents with a 4 day h/o abdominal pain, fever,nausea, vomiting. She has been using tylenol and ibuprofen to control her fevers Allergies Allergy/AdvReac Type Severity Reaction Status Date / Time Sulfa (Sulfonamide Allergy Unknown BACTRIM DS Verified 09/30/18 16:50 Antibiotics) oxycodone AdvReac Unknown NAUSEA AND Unverified 09/30/18 16:50 VOMITING, DIZZINESS Home Medications Home Medications Medication Instructions Recorded Confirmed Type duloxetine 30 mg PO DAILY 09/30/18 09/30/18 History duloxetine 60 mg PO DAILY 09/30/18 09/30/18 History Past Med/Surg History Medical History Oumou's disease Migraines (Chronic) Social History Preferred Language: Yoruba Feels Safe at Home: Yes Smoking Status: Never smoker Results & Data Vital Signs (Past 12 Hours) Vital Signs Temp Pulse Resp BP Pulse Ox 09/30/18 19:31 104 H 23 111/58 L 95 09/30/18 19:30 101 H 27 H 09/30/18 19:21 103 H 23 97 09/30/18 19:20 101 H 134/55 L 97 09/30/18 19:00 107 H 21 125/69 09/30/18 18:31 103 H 117/61 94 09/30/18 18:30 103 H 24 92 09/30/18 18:00 101 H 23 128/75 93 09/30/18 17:30 108 H 09/30/18 17:01 110 H 124/66 92 09/30/18 17:00 105 H 93 09/30/18 16:45 37.8 C H 09/30/18 16:41 111 H 95 09/30/18 16:31 110 H 97/65 L 94 09/30/18 16:21 124 H 20 116/64 94
--- NOTE | 2018-09-30 20:32 | History & Physical Report ---
Date of Service September 30, 2018 Assessment & Plan (1) Pyelonephritis of left kidney: 38 yo F presents to ER with 4 day h/o abdominal pain, fevers, nausea, vomiting. Found to have L sided pyelonephritis and lobar nephronia of L kidney. Pyelonephritis/Nephronia/Abdominal pain -Started on rocephin in ER, will transition to cefepime TID starting 6/2 -NSS at 125 -2mg morphine q2h for pain -Awaiting urine Cx -NPO, prn zofran Mildly Elevated LFTs -GBUS results pending -Likely related to tylenol use -Monitor Atelectasis on imaging -Incentive spirometry -PRN nebs Spinal Stenosis/Peripheral Neuropathic pain -Cont home duloxetine 90mg daily Migraines -Pt has not had in a while, monitor Oumou's -Pt lost 100 lbs and since then numbers have been normal w/o meds -TSH here 1.2 CODE: full DVTP: lovenox FEN/GI: NPO, NSS @125 Dispo: Admit to med/surg (2) Migraines: (3) Spinal stenosis: (4) Oumou's disease: (5) Peripheral neuropathic pain: (6) Abnormal LFTs: History of Present Illness Chief Complaint: abdominal pain, fever, nausea Primary Care Provider: Dr. Gary in [place] Patient is a 38yo F PMH of migraines, thyroid nodule/oumou's thyroiditis, spinal stenosis, morbid obesity, recurrent UTIs who presents with a 4 day h/o lower abdominal pain, fever, nausea, vomiting. She has been using tylenol and ibuprofen to control her fevers. She notes she gets regular UTIs but can always tell via dysuria, urinary frequency. Her last was about 1 month ago. She denies any symptoms of UTI today. ER course: Vitals note tachycardia and temp of 37.8. Labs significant for WBC 12.7, normal BUN/Cr, Mildly elevated LFTs (AST 53, ALT 94, Alkphos 136). UA dirty but 1+protein, 2+blood. Normal TSH. CT abdo shows L sided pyelonephritis with lobar nephronia. Pt had some hives after CT contrast, was given benadryl. Started on rocephin. Gallbadder US obtained for mild LFT changes: awaiting read. Allergies Allergy/AdvReac Type Severity Reaction Status Date / Time Sulfa (Sulfonamide Allergy Unknown BACTRIM DS Verified 09/30/18 16:50 Antibiotics) oxycodone AdvReac Intermediate NAUSEA AND Unverified 09/30/18 21:13 VOMITING, DIZZINESS Home Medications Home Medications Medication Instructions Recorded Confirmed Type duloxetine 30 mg PO DAILY 09/30/18 09/30/18 History duloxetine 60 mg PO DAILY 09/30/18 09/30/18 History Past Med/Surg History Medical History Oumou's disease Migraines (Chronic) Social History Preferred Language: Malawian Communication Ability: Effective Filling Technician Required: No Beliefs That Will Affect Care: None Current Living Situation: Spouse Other Information That Helps Us Care for You: No Feels Safe at Home: Yes Safety Concerns: Feels Safe At This Time Smoking Status: Never smoker Hx Alcohol Use: Yes Hx Substance Use: No Review of Systems Review of Systems: All systems reviewed & are unremarkable except as noted in HPI & below Constitutional: + fever, + chills, + body aches, + fatigue and + weakness Respiratory: no cough and no dyspnea Cardiovascular: no chest pain, no radiating jaw, neck or arm pain, no dyspnea on exertion, no palpitations and no edema Gastrointestinal: + abdominal pain, + nausea and + vomiting; no change in stools and no diarrhea/loose stools Genitourinary: no dysuria, no urinary frequency and no urinary hesitancy Musculoskeletal: + back pain, + joint pain (chronic LBP) and + problem reported Neurologic: + paresthesia (from spinal stenosis, chronic) Physical Exam 2 Constitutional: WD/WN, vitals as above + ill appearing, + morbidly obese, cooperative and + lethargic; no acute distress Eyes: PERRL, conjunctivae normal, anicteric sclerae ENMT: external ear and nose normal, oropharynx normal Neck: normal visual inspection Respiratory: normal respiratory effort; no respiratory distress and does not use accessory muscles Auscultation: lungs clear to auscultation bilaterally Cardiovascular: RRR, no murmur, no edema Gastrointestinal (Abdomen): Inspection/Auscultation: + abdomen distended and normal bowel sounds Percussion/Palpation: + abdomen tender (diffusely, +LUQ, RLQ exceptionally) and abdomen soft Musculoskeletal: no cyanosis or clubbing, extremities motor strength 5/5 Skin: no rashes, warm and dry Neurologic: patellar DTR's 2+ bilat, sensation intact Psychiatric: A+Ox3, euthymic affect Genitourinary: + CVA tenderness Results & Data Vital Signs (Past 12 Hours) Vital Signs Temp Pulse Resp BP Pulse Ox 09/30/18 19:31 104 H 23 111/58 L 95 09/30/18 19:30 101 H 27 H 09/30/18 19:21 103 H 23 97 09/30/18 19:20 101 H 134/55 L 97 09/30/18 19:00 107 H 21 125/69 09/30/18 18:31 103 H 117/61 94 09/30/18 18:30 103 H 24 92 09/30/18 18:00 101 H 23 128/75 93 09/30/18 17:30 108 H 09/30/18 17:01 110 H 124/66 92 09/30/18 17:00 105 H 93 09/30/18 16:45 37.8 C H 09/30/18 16:41 111 H 95 09/30/18 16:31 110 H 97/65 L 94 09/30/18 16:21 124 H 20 116/64 94 Laboratory Results 09/30/18 09/30/18 09/30/18 Range/Units 20:36 18:16 18:05 WBC (4.8-10.8) K/uL RBC (4.2-5.4) M/uL Hgb (12.0-16.0) g/dL POC Hgb 13.6 (12.0-16.0) g/dl Hct (37-47) % POC Hct 40 (37-47) % MCV (80-100) fL MCH (25-34) pg MCHC (32-36) g/dL RDW Std Deviation (36.4-46.3) fL RDW Coeff of Kam (11.5-14.5) % Plt Count (130-400) K/uL MPV (7.4-10.4) fL Immature Gran % (Auto) % Neut % (Auto) % Lymph % (Auto) % Sutter % (Auto) % Eos % (Auto) % Baso % (Auto) % Immature Gran # (Auto) (0.00-0.02) K/uL Neut # (Auto) (1.4-6.5) K/uL Lymph # (Auto) (1.2-3.4) K/uL Sutter # (Auto) (0.11-0.59) K/uL Eos # (Auto) (0-0.5) K/uL Baso # (Auto) (0-0.2) K/uL POC Sodium 141 (135-144) mEq/L Sodium 141 (136-145) mmol/L POC Potassium 3.4 (3.3-5.0) mEq/L Potassium 3.5 (3.5-5.1) mmol/L POC Chloride 106 (101-112) mEq/L Chloride 110 H (98-107) mmol/L Carbon Dioxide 24 (21-32) mmol/L POC Total CO2 21 L (24-31) mEq/l Anion Gap 7.0 (3-11) POC Anion Gap 18.0 (16-25) mmol/L POC BUN 7 (7-18) mg/dl BUN 9 (7-18) mg/dl Creatinine 0.72 (0.6-1.2) mg/dl POC Creatinine 0.6 (0.6-1.3) mg/dl Est Cr Clr Drug Dosing 154.9 ml/min Est GFR ( Amer) 123.1 Est GFR (Non-Af Amer) 106.2 BUN/Creatinine Ratio 12.1 (10-20) Glucose 112 H (70-99) mg/dl POC Glucose (other) 120 H (70-99) mg/dl Lactate (0.4-2.0) mmol/L Calcium 8.9 (8.5-10.1) mg/dl POC Ioniz Calcium Michelle 1.14 (1.12-1.32) mmol/l Total Bilirubin 0.8 (0.2-1) mg/dl AST 53 H (15-37) U/L ALT 94 H (12-78) U/L Alkaline Phosphatase 136 H (45-117) U/L Troponin I < 0.015 (0-0.045) ng/ml Total Protein 7.3 (6.4-8.2) gm/dl Albumin 3.2 L (3.4-5.0) gm/dl Globulin 4.1 H (2.5-4.0) gm/dl Albumin/Globulin Ratio 0.8 L (0.9-2) TSH 1.230 (0.300-4.500) uIu/ml Urine Color Urine Appearance (Clear) Urine pH (4.5-7.5) Ur Specific [place] (1.000-1.030) Urine Protein (Negative) Urine Glucose (UA) (Negative) Urine Ketones (Negative) Urine Blood (Negative) Urine Nitrite (Negative) Urine Bilirubin (Negative) Urine Urobilinogen (Negative) Ur Leukocyte Esterase (Negative) Urine WBC (Auto) (0-5) /hpf Urine RBC (Auto) (0-4) /hpf U Hyaline Cast (Auto) (0-5) /lpf U Epithel Cells (Auto) (0-5) /lpf Urine Bacteria (Auto) (Negative) POC Ur Test (NEG) Acetaminophen Pending Influenza Type A Ag (Neg) Influenza Type B Ag (Neg) 09/30/18 09/30/18 09/30/18 Range/Units 18:05 18:05 16:48 WBC 12.76 H (4.8-10.8) K/uL RBC 4.59 (4.2-5.4) M/uL Hgb 13.7 (12.0-16.0) g/dL POC Hgb (12.0-16.0) g/dl Hct 40.2 (37-47) % POC Hct (37-47) % MCV 87.6 (80-100) fL MCH 29.8 (25-34) pg MCHC 34.1 (32-36) g/dL RDW Std Deviation 41.2 (36.4-46.3) fL RDW Coeff of Kam 12.8 (11.5-14.5) % Plt Count 185 (130-400) K/uL MPV 9.9 (7.4-10.4) fL Immature Gran % (Auto) 0.2 % Neut % (Auto) 77.2 % Lymph % (Auto) 9.2 % Sutter % (Auto) 12.9 % Eos % (Auto) 0.3 % Baso % (Auto) 0.2 % Immature Gran # (Auto) 0.03 H (0.00-0.02) K/uL Neut # (Auto) 9.86 H (1.4-6.5) K/uL Lymph # (Auto) 1.17 L (1.2-3.4) K/uL Sutter # (Auto) 1.64 H (0.11-0.59) K/uL Eos # (Auto) 0.04 (0-0.5) K/uL Baso # (Auto) 0.02 (0-0.2) K/uL POC Sodium (135-144) mEq/L Sodium (136-145) mmol/L POC Potassium (3.3-5.0) mEq/L Potassium (3.5-5.1) mmol/L POC Chloride (101-112) mEq/L Chloride (98-107) mmol/L Carbon Dioxide (21-32) mmol/L POC Total CO2 (24-31) mEq/l Anion Gap (3-11) POC Anion Gap (16-25) mmol/L POC BUN (7-18) mg/dl BUN (7-18) mg/dl Creatinine (0.6-1.2) mg/dl POC Creatinine (0.6-1.3) mg/dl Est Cr Clr Drug Dosing ml/min Est GFR ( Amer) Est GFR (Non-Af Amer) BUN/Creatinine Ratio (10-20) Glucose (70-99) mg/dl POC Glucose (other) (70-99) mg/dl Lactate 0.9 (0.4-2.0) mmol/L Calcium (8.5-10.1) mg/dl POC Ioniz Calcium Michelle (1.12-1.32) mmol/l Total Bilirubin (0.2-1) mg/dl AST (15-37) U/L ALT (12-78) U/L Alkaline Phosphatase (45-117) U/L Troponin I (0-0.045) ng/ml Total Protein (6.4-8.2) gm/dl Albumin (3.4-5.0) gm/dl Globulin (2.5-4.0) gm/dl Albumin/Globulin Ratio (0.9-2) TSH (0.300-4.500) uIu/ml Urine Color Dark Yellow Urine Appearance Clear (Clear) Urine pH 6.5 (4.5-7.5) Ur Specific [place] 1.023 (1.000-1.030) Urine Protein 1+ H (Negative) Urine Glucose (UA) Negative (Negative) Urine Ketones Negative (Negative) Urine Blood 2+ H (Negative) Urine Nitrite Negative (Negative) Urine Bilirubin 1+ H (Negative) Urine Urobilinogen Negative (Negative) Ur Leukocyte Esterase Trace H (Negative) Urine WBC (Auto) 10-30 H (0-5) /hpf Urine RBC (Auto) 10-30 H (0-4) /hpf U Hyaline Cast (Auto) 1-5 (0-5) /lpf U Epithel Cells (Auto) >30 H (0-5) /lpf Urine Bacteria (Auto) Negative (Negative) POC Ur Test (NEG) Acetaminophen Influenza Type A Ag (Neg) Influenza Type B Ag (Neg) 09/30/18 09/30/18 Range/Units 16:48 16:48 WBC (4.8-10.8) K/uL RBC (4.2-5.4) M/uL Hgb (12.0-16.0) g/dL POC Hgb (12.0-16.0) g/dl Hct (37-47) % POC Hct (37-47) % MCV (80-100) fL MCH (25-34) pg MCHC (32-36) g/dL RDW Std Deviation (36.4-46.3) fL RDW Coeff of Kam (11.5-14.5) % Plt Count (130-400) K/uL MPV (7.4-10.4) fL Immature Gran % (Auto) % Neut % (Auto) % Lymph % (Auto) % Sutter % (Auto) % Eos % (Auto) % Baso % (Auto) % Immature Gran # (Auto) (0.00-0.02) K/uL Neut # (Auto) (1.4-6.5) K/uL Lymph # (Auto) (1.2-3.4) K/uL Sutter # (Auto) (0.11-0.59) K/uL Eos # (Auto) (0-0.5) K/uL Baso # (Auto) (0-0.2) K/uL POC Sodium (135-144) mEq/L Sodium (136-145) mmol/L POC Potassium (3.3-5.0) mEq/L Potassium (3.5-5.1) mmol/L POC Chloride (101-112) mEq/L Chloride (98-107) mmol/L Carbon Dioxide (21-32) mmol/L POC Total CO2 (24-31) mEq/l Anion Gap (3-11) POC Anion Gap (16-25) mmol/L POC BUN (7-18) mg/dl BUN (7-18) mg/dl Creatinine (0.6-1.2) mg/dl POC Creatinine (0.6-1.3) mg/dl Est Cr Clr Drug Dosing ml/min Est GFR ( Amer) Est GFR (Non-Af Amer) BUN/Creatinine Ratio (10-20) Glucose (70-99) mg/dl POC Glucose (other) (70-99) mg/dl Lactate (0.4-2.0) mmol/L Calcium (8.5-10.1) mg/dl POC Ioniz Calcium Michelle (1.12-1.32) mmol/l Total Bilirubin (0.2-1) mg/dl AST (15-37) U/L ALT (12-78) U/L Alkaline Phosphatase (45-117) U/L Troponin I (0-0.045) ng/ml Total Protein (6.4-8.2) gm/dl Albumin (3.4-5.0) gm/dl Globulin (2.5-4.0) gm/dl Albumin/Globulin Ratio (0.9-2) TSH (0.300-4.500) uIu/ml Urine Color Urine Appearance (Clear) Urine pH (4.5-7.5) Ur Specific [place] (1.000-1.030) Urine Protein (Negative) Urine Glucose (UA) (Negative) Urine Ketones (Negative) Urine Blood (Negative) Urine Nitrite (Negative) Urine Bilirubin (Negative) Urine Urobilinogen (Negative) Ur Leukocyte Esterase (Negative) Urine WBC (Auto) (0-5) /hpf Urine RBC (Auto) (0-4) /hpf U Hyaline Cast (Auto) (0-5) /lpf U Epithel Cells (Auto) (0-5) /lpf Urine Bacteria (Auto) (Negative) POC Ur Test NEG (NEG) Acetaminophen Influenza Type A Ag Neg for Influ A (Neg) Influenza Type B Ag Neg for Influ B (Neg) Diagnostic Findings XR chest 1V portable CLINICAL HISTORY: fever COMPARISON STUDY: No previous studies for comparison. FINDINGS: The heart is the upper limits of normal in size. There is a suboptimal inspiration. There are basilar opacities left greater than right, atelectatic versus infectious/inflammatory.[ There is no failure. There are no large pleural effusions. IMPRESSION: 1. Low lung volumes with basilar opacities left greater than right, atelectatic versus infectious/inflammatory Electronically signed by: Naman Lester M.D. 09/30/2018 6:[address] abd pelvis IV con only CLINICAL HISTORY: lower abdominal pain, fever COMPARISON STUDY: None. TECHNIQUE: The patient was scanned in a dynamic helical fashion during intravenous administration of 90 cc Optiray 320. A dose lowering technique was utilized adhering to the principles of ALARA. CT DOSE: 1716.79 mGy.cm FINDINGS: Lower chest: There are bibasilar airspace opacities, statistically atelectatic although an inflammatory process could appear similar Liver: The contrast-enhanced liver is normal in size, contour, and attenuation. There is no intrahepatic biliary ductal dilatation. The hepatic veins and portal veins are patent. Gallbladder: The gallbladder is mildly distended. No calculi are visualized. There is no gallbladder wall thickening. Spleen: Spleen is mildly enlarged measuring 13.3 cm. Pancreas: There is fatty atrophy the pancreas. No pancreatic masses are visualized. Adrenal glands: Unremarkable. Kidneys: There is a duplex left renal collecting system. There is an area of focal diminished attenuation involving both the upper pole moiety and the lower pole moiety. There is infiltration of the perinephric fat. The findings are suggestive of polynephritis with focal lobar nephronia. Bowel: There are no transition zones indicate bowel obstruction. There is no evidence of acute diverticulitis. There are no findings to indicate acute appendicitis. Peritoneum: There is no intraperitoneal free air or abdominal ascites. Vasculature: The abdominal aorta is normal in course and caliber. Adenopathy: There are minimally prominent para-aortic lymph nodes nodes, likely reactive. Pelvic viscera: The uterus appears surgically absent Skeletal structures: No destructive osseous lesions are seen. IMPRESSION: Normal Study 1. CT findings indicative of left renal pyelonephritis with areas of lobar nephronia. 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 2. No evidence of bowel obstruction. No evidence of free air 3. Mild splenomegaly 4. Bilateral lower lobe pulmonary opacities, statistically atelectatic Electronically signed by: Naman Lester M.D. 09/30/2018 7:32 PM Medications Administered Current Inpatient Medications Duloxetine HCl (Cymbalta) 30 mg PO DAILY [facility] Stop: 10/31/18 08:59 Duloxetine HCl (Cymbalta) 60 mg PO DAILY [facility] Stop: 10/31/18 08:59 Ioversol (Optiray 320 100ml) 90 ml IV ONCE PRN PRN Reason: Interaction Checking Stop: 10/04/18 19:15 Last Admin: 09/30/18 19:16 Dose: 90 ml Documented by: Code Status & VTE Plan Code Status Full VTE Prophylaxis Plan VTE Prophylaxis will be ordered: Yes Supervising Physician Co-Signing Physician Notes Attending addendum: I have physically seen this patient, have supervised the medical residents activities, and agree with the H&P unless as otherwise noted. Assessment and Plan: Left kidney with pyelonephritis/lobar nephronia- Admit to medical telemetry. NPO Given ceftriaxone in the ER. We will admit on cefepime 1 g IV 3 times daily to better cover potential early abscess formation. NSS 125 mils per hour. Morphine sulfate 2 g IV to 2 hours as needed severe pain. Follow urine culture and sensitivity. Bilateral lower lobe atelectasis- Placed on nebulizer treatments and incentive spirometry. Watch for development secondary pneumonias. Remainder of orders notations as noted. Resident Activity Tracking Resident Involvement: Resident Care Provided Care Provided: Adult Hospital Medicine
--- NOTE | 2018-09-30 20:33 | Ultrasound Report ---
Biliary ultrasound CLINICAL HISTORY: fevers, elevated lfts COMPARISON STUDY: CT scan dated 09/30/2018 FINDINGS: The pancreas was largely obscured. No pancreatic masses are visualized. There is no pancrea tic ductal dilatation. There is no right-sided hydronephrosis. Multiple gallstones are visualized. There is no gallbladder wall thickening. There is no pericholecys tic fluid. There is no ductal dilatation. The common bile duct measures 5 mm. IMPRESSION: 1. Cholelithiasis. No evidence of ductal dilatation. Electronically signed by: Naman Lester M.D. 09/30/2018 8:32 PM
[2018-09-30] MEDS ORDERED: ALBUTEROL 0.083% NEBU SOLN 3 ML VIAL NEB PRN (22:16)
[2018-09-30] MEDS ORDERED: ALUMINUM/MAGNESIUM SUSP 30 ML UDC PO PRN (22:16)
[2018-09-30] MEDS ORDERED: ONDANSETRON INJ 2 MG/ML 2 ML VIAL IV PRN (22:16)
[2018-09-30] MEDS ORDERED: POLYETHYLENE (MIRALAX) 17 GM PACK PO PRN (22:16)
[2018-09-30] MEDS ORDERED: MoRPHine SULFATE 2 MG/ML CARP IV PRN (22:16)
[2018-09-30] MEDS ORDERED: MAGNESIUM HYDROXIDE SUSP 30 ML UDC PO PRN (22:16)
[2018-09-30] MEDS: SODIUM CHLORIDE 0.9% 1000ML 1,000 ML IV SCH (23:35)
[2018-09-30] MEDS: ACETAMINOPHEN 325 MG TAB PO PRN (23:55)
[2018-10-01] MEDS: SODIUM CHLORIDE 0.9% 1000ML 1,000 ML IV SCH ×2 (06:41→13:51)
[2018-10-01 07:00] LABS: Basophils # (auto) 0.05 K/uL (0-0.2); Basophils % (auto) 0.5 %; Eosinophils # (auto) 0.11 K/uL (0-0.5); Hematocrit (blood only) 37.9 % (37-47); Hemoglobin 12.2 g/dL (12.0-16.0); Immature Granulocytes # (auto) 0.03 K/uL (0.00-0.02); Immature Granulocytes % (auto) 0.3 %; Lymphocytes # (auto) 2.22 K/uL (1.2-3.4); Lymphocytes % (auto) 20.3 %; Mean Corpuscular Hgb Conc 32.2 g/dL (32-36); Mean Platelet Volume 10.3 fL (7.4-10.4); Monocytes # (auto) 1.62 K/uL (0.11-0.59); Monocytes % (auto) 14.8 %; Neutrophils # (auto) 6.91 K/uL (1.4-6.5); Neutrophils % (auto) 63.1 %; Platelet Count 167 K/uL (130-400); RDW Coefficient of Variation 12.9 % (11.5-14.5); RDW Standard Deviation 41.6 fL (36.4-46.3); Red Blood Count 4.26 M/uL (4.2-5.4); White Blood Count 10.94 K/uL (4.8-10.8)
[2018-10-01 07:11] LABS: INR 1.1 (0.9-1.1); Prothrombin Time 11.6 Seconds (9.0-12.0)
[2018-10-01 07:36] LABS: Albumin Level 2.6 gm/dl (3.4-5.0); BUN Creatinine Ratio 11.9 (10-20); Calcium 7.9 mg/dl (8.5-10.1); Creatinine Clr Calc Pharmacy 163.9 ml/min; Est GFR (African American) 128.6; Potassium 3.5 mmol/L (3.5-5.1)
[2018-10-01 07:39] LABS: Bilirubin Direct 0.2 mg/dl (0-0.2); Bilirubin,Total 0.6 mg/dl (0.2-1); Total Protein 6.4 gm/dl (6.4-8.2)
[2018-10-01] MEDS: DULOXETINE HCL 30 MG CAP PO SCH (08:34)
[2018-10-01] MEDS: DULOXETINE HCL 60 MG CAP PO SCH (08:34)
[2018-10-01] MEDS: ENOXAPARIN INJ 40 MG/0.4 ML SYR SQ SCH (08:35)
[2018-10-01] MEDS: CEFEPIME 1,000 MG in SYRINGE 0 ML IV SCH ×3 (08:35→20:42)
[2018-10-01] MEDS: ACETAMINOPHEN 325 MG TAB PO PRN (13:50)
--- NOTE | 2018-10-01 15:16 | Hospitalist Progress Note ---
Date of Service October 01, 2018 Assessment & Plan (1) Pyelonephritis of left kidney: 38 yo F presents to ER with 4 day h/o abdominal pain, fevers, nausea, vomiting. Found to have L sided pyelonephritis and lobar nephronia of L kidney. Pyelonephritis/Nephronia/Abdominal pain -Continue cefepime - Follow up urine Cx - Zofran PRN - Discussed with Larry Gomez, no need for urology consult due to the nephronia as long as she responds clinically. No change in usual pyelonephritis duration of abx. Mildly Elevated LFTs - GBUS shows cholelithasis without ductal dilation - Likely related to tylenol use - Monitor Atelectasis on imaging - Incentive spirometry - PRN nebs Spinal Stenosis/Peripheral Neuropathic pain - Cont home duloxetine 90mg daily Migraines - Pt has not had in a while, monitor Cleveland's - Pt lost 100 lbs and since then numbers have been normal w/o meds - TSH here 1.2 (2) Migraines: (3) Spinal stenosis: (4) Cleveland's disease: (5) Peripheral neuropathic pain: (6) Abnormal LFTs: Subjective In no pain today. No nausea. Review of Systems Review of Systems: All systems reviewed & are unremarkable except as noted in HPI & below Physical Exam Constitutional: WD/WN, vitals as above + ill appearing, + morbidly obese, cooperative and + lethargic; no acute distress Eyes: PERRL, conjunctivae normal, anicteric sclerae ENMT: external ear and nose normal, oropharynx normal Neck: normal visual inspection Respiratory: normal respiratory effort; no respiratory distress and does not use accessory muscles Auscultation: lungs clear to auscultation bilaterally Cardiovascular: RRR, no murmur, no edema Gastrointestinal (Abdomen): Inspection/Auscultation: normal bowel sounds; abdomen not distended Percussion/Palpation: abdomen soft; abdomen nontender Musculoskeletal: no cyanosis or clubbing, extremities motor strength 5/5 Skin: no rashes, warm and dry Neurologic: patellar DTR's 2+ bilat, sensation intact Psychiatric: A+Ox3, euthymic affect Genitourinary: + CVA tenderness Results & Data Vital Signs (Past 12 Hours) Vital Signs Temp Pulse Resp BP Pulse Ox 10/01/18 08:00 36.8 C 92 H 18 112/67 93
[2018-10-02 06:44] LABS: Albumin Level 2.7 gm/dl (3.4-5.0); BUN Creatinine Ratio 16.9 (10-20); Calcium 8.2 mg/dl (8.5-10.1); Est GFR (African American) 137.1; Est GFR (Non-African American) 118.3; Magnesium 2.1 mg/dl (1.8-2.4); Potassium 3.4 mmol/L (3.5-5.1)
[2018-10-02 06:45] LABS: Albumin Globulin Ratio 0.7 (0.9-2); Bilirubin,Total 0.5 mg/dl (0.2-1); Globulin 3.8 gm/dl (2.5-4.0); Total Protein 6.5 gm/dl (6.4-8.2)
[2018-10-02] MEDS: DULOXETINE HCL 30 MG CAP PO SCH (08:28)
[2018-10-02] MEDS: DULOXETINE HCL 60 MG CAP PO SCH (08:28)
[2018-10-02] MEDS: ENOXAPARIN INJ 40 MG/0.4 ML SYR SQ SCH (08:28)
[2018-10-02] MEDS: POTASSIUM CHLORIDE 20 MEQ TABCR PO SCH (08:36)
[2018-10-02] MEDS: CEFEPIME 1,000 MG in SYRINGE 0 ML IV SCH ×3 (08:36→22:05)
[2018-10-02] MEDS: LACTOBACILLUS ACIDOPHILUS (FLORANEX) TAB PO SCH (18:00)
[2018-10-02 20:21] LABS: Appearance Urine Clear (Clear); Bilirubin Urine Negative (Negative); Blood Urine Negative (Negative); Color Urine Yellow; Glucose Urine UA Negative (Negative); Ketones Urine Negative (Negative); Leukocyte Esterase Urine Negative (Negative); Nitrite Urine Negative (Negative); Protein Urine Negative (Negative); Specific Gravity Urine 1.019 (1.000-1.030); Urobilinogen Urine Negative (Negative); pH Urine 6.5 (4.5-7.5)
--- NOTE | 2018-10-02 20:26 | Hospitalist Progress Note ---
Date of Service October 02, 2018 Assessment & Plan (1) Pyelonephritis of left kidney: 38 yo F presented to ER with 4 day h/o abdominal pain, fevers, nausea, vomiting. Found to have L sided pyelonephritis and lobar nephronia of L kidney on CT abd/pelvis. Fevers resolved. Patient clinically well. Unfortunately urine cx from admission did not grow specific pathogen. Blood cx's negative. Will repeat the u/a and urine cx to ensure it has cleared. Keep on cefepime 1 more day then transition to PO abx tomorrow. Rx x 14 days in total. She has h/o recurrent UTIs and has duplicated renal collecting system -- will refer to urology for this post-discharge. Fortunately no hydronephrosis was seen on imaging which would argue against VUR. Regardless will refer. Repeat u/s today to ensure no focal abscess on left kidney or hydro. 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 No hydronephrosis on imaging. Ordered renal u/s to be complete. She has had recurrent UTIs since childhood - will refer to urology to see if this normal variant could be contributing to heightened UTI risk. Present on Admission?: Yes (3) Abnormal LFTs: Uncertain etiology. Repeat LFTs am. Mild splenomegaly on imaging. Could she has underlying liver disease? are these reactive to a viral process? other? consider acute hepatitis profile. if still high tomorrow then outpt GI referral. 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 no flank pain, back pain or abd pain. no dysuria. urine has become more clear. no nausea/emesis/dyspepsia/pain w/ eating. no fevers/chills. did have recurrent UTIs since childhood. has never had work-up for such. Review of Systems Constitutional: no fever, no chills, no fatigue and no anorexia Respiratory: no cough and no dyspnea Cardiovascular: no chest pain Physical Exam Constitutional: no acute distress, not morbidly obese and no altered mental status ENMT: external ear and nose normal, oropharynx normal Respiratory: normal respiratory effort, lungs clear to auscultation Cardiovascular: RRR, no murmur, no edema Heart Sounds: normal S1 and normal S2 Vessels: posterior tibial pulses present and dorsalis pedis pulses present; no JVD Gastrointestinal (Abdomen): normal bowel sounds, soft, nontender, no hepatosplenomegaly no flank pain b/l Psychiatric: A+Ox3, euthymic affect Results & Data Vital Signs (Past 12 Hours) Vital Signs Temp Pulse Resp BP Pulse Ox 10/02/18 14:56 36.7 C 84 20 120/73 96 10/02/18 11:43 36.7 C 78 22 123/74 96 Laboratory Results Laboratory Results - last 24 hr 10/02/18 10/02/18 05:46 20:00 Sodium 140 Potassium 3.4 L Chloride 110 H Carbon Dioxide 24 Anion Gap 6.0 BUN 9 Creatinine 0.56 L Est Cr Clr Drug Dosing 199.0 Est GFR ( Amer) 137.1 Est GFR (Non-Af Amer) 118.3 BUN/Creatinine Ratio 16.9 Glucose 106 H Calcium 8.2 L Magnesium 2.1 Total Bilirubin 0.5 AST 50 H ALT 88 H Alkaline Phosphatase 137 H Total Protein 6.5 Albumin 2.7 L Globulin 3.8 Albumin/Globulin Ratio 0.7 L Urine Color Yellow Urine Appearance Clear Urine pH 6.5 Ur Specific [place] 1.019 Urine Protein Negative Urine Glucose (UA) Negative Urine Ketones Negative Urine Blood Negative Urine Nitrite Negative Urine Bilirubin Negative Urine Urobilinogen Negative Ur Leukocyte Esterase Negative Diagnostic Findings blood and urine cx's negative (1) Migraines Migraine type: unspecified Status migrainosus presence: without status migrainosus Intractability: not intractable Qualified Code(s): G43.909 - Migraine, unspecified, not intractable, without status migrainosus (2) Spinal stenosis Spinal region: lumbar Neurogenic claudication status: unspecified Qualified Code(s): M48.061 - Spinal stenosis, lumbar region without neurogenic cla udication
--- NOTE | 2018-10-02 22:18 | Ultrasound Report ---
RENAL ULTRASOUND HISTORY: Left flank pain. L duplicated collection system; pyelo L COMPARISON: Abdomen and pelvis CT 09/30/2018. FINDINGS: Right kidney: 11.9 cm. No hydronephrosis. Normal corticomedullary differentiation and cortical thickn ess. Left kidney: Duplicated collecting system measuring 14.8 cm in length. No hydronephrosis. The renal c ortex is slightly echogenic. This likely corresponds to the patient's history of pyelonephritis. Bladder: No bladder wall thickening. The ureteral jets are not identified. Miscellaneous: Multiple stones within the gallbladder. The spleen is enlarged measuring 14 cm in narciso th. IMPRESSION: 1. The renal cortex within the left kidney is slightly echogenic. This likely corresponds to the kenney ent's history of pyelonephritis. 2. Cholelithiasis. 3. The spleen is mildly enlarged measuring 14 cm in length. Electronically signed by: Prateek Reyes M.D. 10/02/2018 10:17 PM
[2018-10-03 06:29] LABS: Hematocrit (blood only) 36.1 % (37-47); Mean Corpuscular Hgb Conc 33.2 g/dL (32-36); Mean Corpuscular Volume 87.2 fL (80-100); Mean Platelet Volume 9.8 fL (7.4-10.4); Platelet Count 219 K/uL (130-400); RDW Coefficient of Variation 12.7 % (11.5-14.5); RDW Standard Deviation 40.9 fL (36.4-46.3); Red Blood Count 4.14 M/uL (4.2-5.4)
[2018-10-03 07:09] LABS: Albumin Level 2.7 gm/dl (3.4-5.0); BUN Creatinine Ratio 14.9 (10-20); Calcium 8.5 mg/dl (8.5-10.1); Est GFR (African American) 137.1; Est GFR (Non-African American) 118.3; Potassium 3.5 mmol/L (3.5-5.1)
[2018-10-03 07:12] LABS: Albumin Globulin Ratio 0.7 (0.9-2); Bilirubin,Total 0.3 mg/dl (0.2-1); Globulin 3.9 gm/dl (2.5-4.0); Total Protein 6.6 gm/dl (6.4-8.2)
[2018-10-03] MEDS: LACTOBACILLUS ACIDOPHILUS (FLORANEX) TAB PO SCH (08:16)
[2018-10-03] MEDS: DULOXETINE HCL 60 MG CAP PO SCH (08:16)
[2018-10-03] MEDS: POTASSIUM CHLORIDE 20 MEQ TABCR PO SCH (08:16)
[2018-10-03] MEDS: DULOXETINE HCL 30 MG CAP PO SCH (08:16)
[2018-10-03] MEDS: ENOXAPARIN INJ 40 MG/0.4 ML SYR SQ SCH (08:17)
[2018-10-03] MEDS: CEFEPIME 1,000 MG in SYRINGE 0 ML IV SCH (08:24)
--- NOTE | 2018-10-03 09:11 | Discharge Summary ---
Date of Service date of admission - September 30, 2018 date of discharge - October 03, 2018 Admission HPI Per Admitting Provider Patient is a 38yo F PMH of migraines, thyroid nodule/oumou's thyroiditis, spinal stenosis, morbid obesity, recurrent UTIs who presents with a 4 day h/o lower abdominal pain, fever, nausea, vomiting. She has been using tylenol and ibuprofen to control her fevers. She notes she gets regular UTIs but can always tell via dysuria, urinary frequency. Her last was about 1 month ago. She denies any symptoms of UTI today. ER course: Vitals note tachycardia and temp of 37.8. Labs significant for WBC 12.7, normal BUN/Cr, Mildly elevated LFTs (AST 53, ALT 94, Alkphos 136). UA dirty but 1+protein, 2+blood. Normal TSH. CT abdo shows L sided pyelonephritis with lobar nephronia. Pt had some hives after CT contrast, was given benadryl. Started on rocephin. Principal Diagnosis left-sided pyelonephritis Discharge Exam Constitutional + morbidly obese; no acute distress and no altered mental status ENMT external ear and nose normal, oropharynx normal Respiratory normal respiratory effort, lungs clear to auscultation Cardiovascular RRR, no murmur, no edema Heart Sounds: normal S1 and normal S2 Vessels: posterior tibial pulses present and dorsalis pedis pulses present; no JVD Gastrointestinal (Abdomen) normal bowel sounds, soft, nontender, no hepatosplenomegaly no flank tenderness b/l; no back tenderness to palpation Skin no rashes, warm and dry Psychiatric A+Ox3, euthymic affect Discharge Data Allergies Allergy/AdvReac Type Severity Reaction Status Date / Time Sulfa (Sulfonamide Allergy Unknown BACTRIM DS Verified 09/30/18 16:50 Antibiotics) oxycodone AdvReac Intermediate NAUSEA AND Unverified 09/30/18 21:13 VOMITING, DIZZINESS Ordered Studies 1. CT abd/pelvis - IMPRESSION: 1. CT findings indicative of left renal pyelonephritis with areas of lobar nephronia. 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 2. No evidence of bowel obstruction. No evidence of free air 3. Mild splenomegaly 4. Bilateral lower lobe pulmonary opacities, statistically atelectatic 2. u/s gall bladder - FINDINGS: The pancreas was largely obscured. No pancreatic masses are visualized. There is no pancreatic ductal dilatation. There is no right-sided hydronephrosis. Multiple gallstones are visualized. There is no gallbladder wall thickening. There is no pericholecystic fluid. There is no ductal dilatation. The common bile duct measures 5 mm. 3. Renal ultrasound - FINDINGS: Right kidney: 11.9 cm. No hydronephrosis. Normal corticomedullary differentiation and cortical thickness. Left kidney: Duplicated collecting system measuring 14.8 cm in length. No hydronephrosis. The renal cortex is slightly echogenic. This likely corresponds to the patient's history of pyelonephritis. Bladder: No bladder wall thickening. The ureteral jets are not identified. Miscellaneous: Multiple stones within the gallbladder. The spleen is enlarged measuring 14 cm in length. Hospital Course (1) Pyelonephritis of left kidney: CT abd/pelvis with left-sided pyelonephritis and lobar nephronia of left kidney at time of presentation. Blood cultures remained negative while here. Fevers resolved and she improved clinically with IV antibiotics. Repeat imaging later in the stay failed to show a left-sided renal abscess. Unfortunately urine culture from admission did not grow a specific pathogen. Repeat u/a later in the stay looked much better and the repeat culture ultimately was also negative. At discharge she was asked to take 10 more days of oral omnicef 300mg BID. Due to the patient's h/o recurrent UTIs and the duplicated renal collecting system will refer to urology post-discharge. Fortunately no hydronephrosis was seen on imaging which would argue against chronic VUR. Regardless will refer. 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 Congenital. Fortunately no hydronephrosis on imaging. She has had recurrent UTIs since childhood - will refer to urology to see if this renal variant could be contributing to heightened UTI risk. (3) Abnormal LFTs: Uncertain etiology. Mild splenomegaly also seen on imaging. Could she has underlying liver disease? are these reactive to a viral process? other? Hep A, B, and C serologies were all negative. The LFTs DID improve while here; only the alk phos was slightly above normal at time of discharge. Recommend outpatient surveillance to ensure ongoing normal values. (4) Migraines: no issues during the stay. (5) Spinal stenosis: no issues during the stay. 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 Unable to feel her spleen on examination. Recommend serial exams as outpatient and also repeat LFTs. (9) Morbid obesity with BMI of 45.0-49.9, adult: BMI 48 Total Time Total Time Spent Total Time Spent (In Minutes): 40 Total Time Includes: Examination of the Patient, Discharge Planning, Medication Reconciliation and Communication With Other Providers Discharge Plan Discharge Items Patient Disposition: Home - Self-Care Reason For Visit: PYELONEPHRITIS Discharge Diagnosis: left-sided pyelonephritis (kidney infection); incidentally found gallstones and left-sided duplicated collection system of kidney. Discharge Goals: Diagnostic testing and Therapeutic intervention Activity: As commented below Activity Comment: gradually increase activities over the next week Driving/Machine Use: No limitations Non-emergency contact: Primary Care Provider and Urologist Call non-emergency contact if: you have any medication questions, your symptoms worsen, your pain is not controlled, your pain is worsening, your pain is unusual for you, your pain is concerning for you and your temperature is above 100.5 Follow-up/Referrals: Larry Gomez MD [Physician] - 10/05/18 2:15 pm (A Urology appointment has been made on October [address] Larry Gomez at 2:15 pm. Please arrive 10 minutes early. The office is located at [address] [place] [address]. Iff chan have any questions or need to rechedule, please call the office at [phone].) PCP,NO [Physician] - Diet: Regular Addtl Provider Instructions: From Ever López - hospitalist - You were treated for left-sided pyelonephritis. This is an infection of the kidney. Unfortunately your urine culture did not grow a specific bacterium which typically guides our antibiotic selection. However, you responded very nicely to the IV antibiotic given with resolution of your fevers, abdominal pain, and elevated white blood cell count. Your blood cultures never showed any bacterial growth; thus, you did NOT have blood-stream infection. Your repeat urinalysis was perfect suggesting that your infection is resolving nicely. You also had elevated LFTs (liver function tests). The exact cause of this was uncertain. We performed an ultrasound of your liver and gallbladder due to the abnormal LFTs. This showed gallstones in the gall bladder but the gall bladder was not sickly appearing. Your liver overall looked normal. Your spleen was modestly enlarged. Lastly, we incidentally found that you have a "duplicated collecting system" of the left kidney. This is something you were born with. It may or may not be contributing to your long-standing, recurrent UTIs. Would suggest follow-up with urology for this. Recommendations - 1. cefdinir antibiotic -- 1 capsule twice a day for 10 days starting tonight. On occasion this antibiotic can cause the stool to look maroon-colored (bloody). It is a pigment from the antibiotic if this happens to you. 2. probiotics daily for 10 days to help prevent diarrhea from the cefdinir. 3. follow-up with your family doctor within 1 week. Ask your family doctor for a referral to a GI specialist for the elevated LFTs and the mildly enlarged spleen. 4. ask your family doctor to repeat your LFTs at time of follow-up. 5. please see [facility] at your convenience for the issue of recurrent UTIs and the duplicated collecting system. 6. avoid tylenol for now until it is shown your liver tests are consistently normal. 7. ok to take ibuprofen or naprosyn [id number] for aches/pains according to instructions on the bottle for these products. 8. would avoid contact sports or activities that could lead to injury to the abdomen (due to mildly enlarged spleen). Follow-up - see separate section. Return to [facility] if - * you have recurrent fevers over 100.5 degrees * you have recurrent back or abdominal pain * you develop severe diarrhea * you have nausea or vomiting * you have blood in the urine, severe pain with urinating, etc * any other concerns Prescriptions: New cefdinir 300 mg capsule 300 mg PO BID 10 Days Qty: 20 RF: 0 Saccharomyces boulardii 250 mg capsule 250 mg PO DAILY 10 Days Qty: 10 RF: 0 Continued duloxetine 30 mg capsule,delayed release(DR/EC) 30 mg PO DAILY RF: 0 duloxetine 60 mg capsule,delayed release(DR/EC) 60 mg PO DAILY RF: 0 Stand-Alone Forms: My [facility], Work/School Release (Inpt) Krayun/Other Patient Handouts: ED UTI Pyelonephritis Female Discharge Orders: Discharge Order (Routine); Ordered 10/03/18 Ordered By: Ever López Admission Data Admit Date/Time: 09/30/18 21:11 Attending Provider: Ever López Admit Provider: Sasha Jones Primary Care Provider: Uma Gary Other Providers: Augie Gomez Service: Medical Other Interventions: Discharge Summary Assessment (RN) Last Done: 10/03/18 08:35 Pending Studies at Discharge: Yes Studies:: urine/blood cultures DC Date/Time DO NOT enter until pt leaves facility: 10/03/18 10:46
[2018-10-03 09:47] LABS: Hepatitis B Surface Antigen Neg (Neg)
[2018-10-03 10:15] LABS: Hepatitis C IgG 13Yrs+Old_Rflx Neg (Neg)
== END 2018-10-03 10:46 | disposition home or self-care (01) | DRG 690 ==
LOC: ED 16:18 → SUATTDRO 21:11 → 2N 21:11
DX: Z88.5 Allergy status to narcotic agent; G43.909 Migraine, unspecified, not intractable, without status migrainosus; N12 Tubulo-interstitial nephritis, not specified as acute or chronic; M48.00 Spinal stenosis, site unspecified; Z88.2 Allergy status to sulfonamides; K80.20 Calculus of gallbladder without cholecystitis without obstruction; R79.89 Other specified abnormal findings of blood chemistry; Z68.42 Body mass index [BMI] 45.0-49.9, adult; E66.01 Morbid (severe) obesity due to excess calories; J98.11 Atelectasis